=== PATIENT | female | born 1975 | race Caucasian/White ===

== ENCOUNTER 2019-06-06 05:13 | Inpatient (IN) | payer MEDICAID ==
[2019-06-03 11:22] LABS: BASOPHILS % (AUTO) 0.5 % (0-1); EOSINOPHILS % (AUTO) 0.3 % (0-6); LYMPHOCYTES # (AUTO) 1.7 X10'3 (1.1-4.8); LYMPHOCYTES % (AUTO) 28.9 % (21-51); MEAN CORPUSCULAR HEMOGLOBIN 30.5 PG (27.0-31.0); MEAN CORPUSCULAR HGB CONC 34.1 g/dL (33.0-36.5); MEAN CORPUSCULAR VOLUME 89.4 FL (78-98); MONOCYTES # (AUTO) 0.4 X10'3 (0-0.9); MONOCYTES % (AUTO) 7.6 % (2-12); NEUTROPHILS # (AUTO) 3.7 X10'3 (1.8-7.7); NEUTROPHILS % (AUTO) 62.7 % (42-75); PRE OP HEMATOCRIT 38.9 % (35.0-45.0); PRE OP HEMOGLOBIN 13.3 g/dL (12.0-16.0); PRE OP PLATELET COUNT 264 X10'3 (140-440); RED BLOOD COUNT 4.35 X10'6 (4.20-5.60); RED CELL DISTRIBUTION WIDTH 14.2 % (11.5-14.5)
[2019-06-03 11:28] LABS: CLARITY,URINE SLIGHTLY CLOUDY (Clear); COLOR,URINE YELLOW (Yellow); GLUCOSE, URINE NEGATIVE (Neg); KETONES,URINE NEGATIVE (Neg); LEUKOCYTE ESTERASE ,URINE NEGATIVE (Neg); NITRITES, URINE NEGATIVE (Neg); OCCULT BLOOD,URINE NEGATIVE (Neg); PH,URINE 7.5 (4.8-8.0); PROTEIN,URINE NEGATIVE (Neg); UROBILINOGEN,URINE 0.2 E.U/dL (0.2-1.0)
[2019-06-03 11:29] LABS: UA COLLECTION TYPE CLN CATCH MIDSTREAM
[2019-06-03 11:33] LABS: PRE OP PROTIME 10.3 SECONDS (9.0-12.0)
[2019-06-03 11:35] LABS: ALBUMIN 3.8 G/DL (3.4-5.0); ALBUMIN/GLOBULIN RATIO 1.2 (1.1-1.5); ALKALINE PHOSPHATASE 66 IU/L (46-116); BLOOD UREA NITROGEN 8 MG/DL (7-18); BUN/CREATININE RATIO 10.8 (6.6-38.0); CALCIUM 8.6 MG/DL (8.5-10.1); CHLORIDE 106 MMOL/L (99-107); CREATININE 0.74 MG/DL (0.40-0.90); PRE OP ALT 21 U/L (30-65); PRE OP ANION GAP 5 (8-16); PRE OP AST 15 U/L (10-37); PRE OP BILIRUB, TOTAL 0.4 MG/DL (0.0-1.0); PRE OP GLUCOSE 86 MG/DL (70-104); PRE OP SODIUM 139 MMOL/L (135-145); TOTAL CARBON DIOXIDE 28.1 MMOL/L (24-32); eGFR 86 ML/MIN
[2019-06-03 11:40] LABS: MUCUS STRANDS FEW /LPF (Neg); SQUAMOUS EPITHELIAL CELL,UR FEW /LPF (FEW)
[2019-06-03 11:41] LABS: BACTERIA,URINE NONE SEEN /HPF (Neg); RBC,URINE 0-2 /HPF (0-2); TRANSITIONAL EPI CELLS,URINE FEW /HPF; WBC,URINE 0-4 /HPF (0-4)
[2019-06-06] VITALS (18 sets, daily range): BP systolic 104–128; BP diastolic 49–76
[~2019-06-06] VITALS: Ht 160 cm; Wt 68.0 kg
[~2019-06-06 05:13] MED LIST: BACL10TA PO; IBUP-2417 PO; LEVO100T PO; LORA10TA7 PO; MUPI22OI30 TP
[2019-06-06] MEDS ORDERED: ceFOXitin 2 GM ADDvantage bag 100 ML IV ONE (05:30)
[2019-06-06] MEDS ORDERED: NORMAL SALINE IV SCH (05:30)
[2019-06-06] MEDS ORDERED: GENTAMICIN IV SCH (05:30)
[2019-06-06] MEDS ORDERED: CLINDAMYCIN/D5W 900mg/50ml 50 ML IV ONE (05:30)
[2019-06-06] MEDS ORDERED: tranexamic acid inj. 1,000 MG in normal saline 100 ML IV ONE (05:30)
[2019-06-06] MEDS ORDERED: famotidine 10mg tablet PO ONE (05:30)
[2019-06-06] MEDS ORDERED: LIDOcaine 1% (10mg/ml) 2ml vial ONE (05:53)
[2019-06-06] MEDS: ringers solution, lacted 1,000 ML IV SCH ×2 (06:04→22:34)
[2019-06-06] MEDS ORDERED: sevoflurane 250ml liquid IH ONE (07:15)
[2019-06-06] MEDS ORDERED: glycopyrrolate 0.2mg/ml inj ONE (07:15)
[2019-06-06] MEDS ORDERED: rocuronium 10mg/ml inj IV ONE (07:15)
[2019-06-06] MEDS ORDERED: neostigmine methylsulfate 1 MG/ML 10ml vial ONE (07:15)
[2019-06-06] MEDS ORDERED: scopolamine 1.5mg patch.TD72 TD ONE (07:21)
[2019-06-06] MEDS ORDERED: midazolam 2 mg/2 ml injection ONE (07:24)
[2019-06-06] MEDS ORDERED: fentaNYL /PF 50mcg/ml 5ml ampule ONE (07:24)
[2019-06-06] MEDS ORDERED: LIDOcaine 2% (20mg/ml) 5ml vial ONE (07:24)
[2019-06-06] MEDS ORDERED: propofol inj 20 ML IV ONE (07:24)
[2019-06-06] MEDS ORDERED: dexamethasone sod phosphate 4mg/ml inj. ONE (07:37)
[2019-06-06] MEDS ORDERED: ondansetron/PF 4mg/2ml inj ONE (07:37)
[2019-06-06] MEDS ORDERED: bisacodyl 10mg suppository rectal RC PRN (09:15)
[2019-06-06] MEDS ORDERED: naloxone 0.4 mg/ml inj IV PRN ×2 (09:15→09:50)
[2019-06-06] MEDS ORDERED: LORazepam 2 mg/ml vial IV PRN (09:15)
[2019-06-06] MEDS ORDERED: HYDROcodone/acetaminophen 5mg/325mg tablet PO PRN (09:15)
[2019-06-06] MEDS ORDERED: temazepam 15mg capsule PO PRN (09:15)
[2019-06-06] MEDS ORDERED: mag hydrox/Alum hydrox/simeth 30ml oral suspension PO PRN (09:15)
[2019-06-06] MEDS ORDERED: ondansetron/PF 4mg/2ml inj IV PRN ×2 (09:15→09:35)
[2019-06-06] MEDS ORDERED: diphenhydrAMINE 50 mg/ml inj IV PRN (09:15)
[2019-06-06] MEDS ORDERED: HYDROcodone/acetaminophen 10/325mg tab PO PRN ×2 (09:15)
[2019-06-06] MEDS ORDERED: CADD PCA waste documentation MC PRN ×2 (09:15→09:50)
[2019-06-06] MEDS ORDERED: ketorolac trometh. 30mg/ml inj. ONE (09:17)
--- NOTE | 2019-06-06 09:30 | NUR ---
Received from OR via SURGICAL BED , accompanied by Anesthesiologist ART and report given by Anesthesiolgist. PATIENT WITH ONE LATERAL LOW ABDOMINAL DRESSING IN PLACE THAT IS CDI. 20G PIV IN LEFT UE RUNNING LR AT 100. DENIES PAIN. BEAL CATHETER PRESENT WITH CLEAR YELLOW URINE. Addendum: 06/06/19 at 0944 by Stevie Jean RN, RN Amended: Links added.
[2019-06-06] MEDS ORDERED: ringers solution, lacted 1,000 ML IV SCH (09:34)
[2019-06-06] MEDS ORDERED: meperidine/PF 25mg/ml syringe IV PRN ×2 (09:35)
[2019-06-06] MEDS ORDERED: proCHLORperazine 10 MG/2 ml inj IV PRN (09:35)
[2019-06-06] MEDS ORDERED: morphine 4 MG/ML inj SYRINge IV PRN ×2 (09:35)
[2019-06-06] MEDS ORDERED: morphine/NS 5 mg/ml CADD 50 ML IV SCH (09:47)
[2019-06-06] MEDS: meperidine/PF 25mg/ml syringe IV PRN ×2 (09:57→10:14)
[2019-06-06] MEDS ORDERED: ibuprofen 200mg tablet PO PRN (10:40)
[2019-06-06] MEDS ORDERED: baclofen 10mg tablet PO PRN (10:40)
--- NOTE | 2019-06-06 10:40 | NUR ---
ALL CRITERIA FOR TRANSFER TO THE FLOOR HAS BEEN ACHIEVED. VSS. BED LOW, CALL LIGHT AND VS. SET IN PLACE. RN PRESENT TO ACCEPT CARE. PATIENT RESTING COMFORTABLY IN BED. BELONGINGS SENT WITH PATIENT. DRESSINGS CDI. SALVATORE CORTÉS PRESENT TO ACCEPT CARE OF PATIENT. SPOUSE AT BEDSIDE. ONE BAG OF BELONGINGS SENT WITH PATIENT. ABDOMINAL DRESSING IS CDI. Addendum: 06/06/19 at 1050 by Stevie Jean RN, RN Amended: Links added.
--- NOTE | 2019-06-06 10:45 | NUR ---
Received report from SALVATORE Hubbard in recovery and patient arrived to room 358A, vital signs stable, morphine CADD set up with SALVATORE Hubbard. at bedside. Patient drowsy, arousable to name, no other signs of distress. Oxygen saturation at 100% on 2 L O2. Island dressing on lower abdomen and CDI.
[2019-06-06] MEDS: morphine/NS 5 mg/ml CADD 50 ML IV SCH ×6 (13:00→23:00)
[2019-06-06] MEDS: simethicone 80mg chew tab PO SCH ×2 (13:01→19:13)
[2019-06-06] MEDS: ibuprofen 200mg tablet PO SCH ×2 (13:02→19:13)
--- NOTE | 2019-06-06 18:30 | NUR ---
Patient in room [facility] 358. I have received report from SALVATORE Post and had the opportunity to ask questions and assume patient care.
[2019-06-06] MEDS: mupirocin 2% ointment 22GM TP SCH (19:13)
[2019-06-06] MEDS: docusate sod 100mg capsule PO SCH (19:13)
[2019-06-07 00:46] VITALS: BP 99/42
[2019-06-07 00:55] VITALS: BP 120/90
[2019-06-07] MEDS: morphine/NS 5 mg/ml CADD 50 ML IV SCH ×6 (01:00→11:00)
[2019-06-07] MEDS: ibuprofen 200mg tablet PO SCH ×4 (02:00→19:21)
[2019-06-07 05:21] LABS: BASOPHILS % (AUTO) 0.2 % (0-1); EOSINOPHILS % (AUTO) 0.2 % (0-6); HEMATOCRIT 32.3 % (35.0-45.0); HEMOGLOBIN 10.7 g/dl (12.0-16.0); LYMPHOCYTES # (AUTO) 1.6 X10'3 (1.1-4.8); LYMPHOCYTES % (AUTO) 14.4 % (21-51); MEAN CORPUSCULAR HGB CONC 33.1 g/dL (33.0-36.5); MEAN CORPUSCULAR VOLUME 90.5 FL (78-98); MEAN PLATELET VOLUME 8.3 FL (7.4-10.4); MONOCYTES % (AUTO) 9.2 % (2-12); NEUTROPHILS # (AUTO) 8.5 X10'3 (1.8-7.7); PLATELET COUNT 219 X10'3 (140-440); RED BLOOD COUNT 3.56 X10'6 (4.20-5.60); RED CELL DISTRIBUTION WIDTH 14.2 % (11.5-14.5); WHITE BLOOD COUNT 11.2 X10'3 (4.5-11.0)
[2019-06-07 05:37] LABS: ALANINE AMINOTRANSFERASE 20 U/L (12-78); ALBUMIN 2.9 G/DL (3.4-5.0); ALKALINE PHOSPHATASE 51 IU/L (46-116); ANION GAP 6 (8-16); ASPARTATE AMINO TRANSFERASE 26 U/L (10-37); BILIRUBIN,TOTAL 0.4 MG/DL (0.1-1.0); BLOOD UREA NITROGEN 6 MG/DL (7-18); BUN/CREATININE RATIO 8.2 (6.6-38.0); CALCIUM 7.9 MG/DL (8.5-10.1); CHLORIDE 106 MMOL/L (99-107); CREATININE 0.73 MG/DL (0.40-0.90); GLUCOSE 107 MG/DL (70-104); POTASSIUM 3.7 MMOL/L (3.5-5.1); SODIUM 140 MMOL/L (135-145); TOTAL CARBON DIOXIDE 28.2 MMOL/L (24-32); TOTAL PROTEIN 5.8 G/DL (6.4-8.2); eGFR 87 ML/MIN
--- NOTE | 2019-06-07 06:21 | NUR ---
Problems reprioritized. Patient report given, questions answered & plan of care reviewed with SALVATORE Canela.
--- NOTE | 2019-06-07 06:25 | NUR ---
Patient in room [facility] 358. I have received report from BELLE CHASE and had the opportunity to ask questions and assume patient care.
[2019-06-07 07:00] VITALS: BP 107/62
[2019-06-07] MEDS: levoTHYROXINE 100mcg tablet PO SCH (07:31)
[2019-06-07] MEDS: loratadine 10mg tablet PO SCH (07:31)
[2019-06-07] MEDS: docusate sod 100mg capsule PO SCH ×2 (07:31→19:21)
[2019-06-07] MEDS: simethicone 80mg chew tab PO SCH ×3 (07:31→19:21)
[2019-06-07] MEDS: mupirocin 2% ointment 22GM TP SCH ×2 (07:32→19:21)
--- NOTE | 2019-06-07 07:37 | NUR ---
ADMIN MEDS, CHECKED ABD, CURRENTLY NO FLATULUS, PT STATES SHE AMBULATED LAST NIGHT AND AT 0500. WILL AMBULATE AGAIN AFTER BREAKFAST.
[2019-06-07 11:00] VITALS: BP 112/56
--- NOTE | 2019-06-07 11:46 | NUR ---
PT IS AMBULATING, VOIDING WELL AFTER DC'ING THE BEAL CATHETER, AND MINIMAL PAIN
[2019-06-07] MEDS: metoclopramide 5 mg/ml inj IV PRN (17:40)
[2019-06-07 18:00] VITALS: BP 100/57
--- NOTE | 2019-06-07 18:12 | NUR ---
Problems reprioritized. Patient report given, questions answered & plan of care reviewed with BELLE CHASE.
--- NOTE | 2019-06-07 18:15 | NUR ---
Patient in room [facility] 358. I have received report from SALVATORE Canela and had the opportunity to ask questions and assume patient care.
[2019-06-07] MEDS: normal saline 1000ml 1,000 ML IV PRN ×2 (18:22→18:24)
[2019-06-07] MEDS: potassium 20mEq/D5LR 1,000 ML IV SCH (19:20)
[2019-06-08] VITALS: BP 107/61
[2019-06-08] MEDS: potassium 20mEq/D5LR 1,000 ML IV SCH (02:15)
[2019-06-08] MEDS: ibuprofen 200mg tablet PO SCH ×2 (02:15→07:34)
--- NOTE | 2019-06-08 06:14 | NUR ---
Patient in room [facility] 358. I have received report from BELLE CHASE and had the opportunity to ask questions and assume patient care.
--- NOTE | 2019-06-08 06:26 | NUR ---
Problems reprioritized. Patient report given, questions answered & plan of care reviewed with Lu Canela.
[2019-06-08 07:00] VITALS: BP 108/66
[2019-06-08] MEDS ORDERED: POTASSIUM CL IV SCH (07:10)
[2019-06-08] MEDS ORDERED: LACTED IV SCH (07:10)
[2019-06-08] MEDS ORDERED: RINGERS IV SCH (07:10)
[2019-06-08] MEDS: simethicone 80mg chew tab PO SCH (07:34)
[2019-06-08] MEDS: levoTHYROXINE 100mcg tablet PO SCH (07:34)
[2019-06-08] MEDS: metoclopramide 5 mg/ml inj IV PRN (07:34)
[2019-06-08] MEDS: loratadine 10mg tablet PO SCH (07:34)
[2019-06-08] MEDS: docusate sod 100mg capsule PO SCH (07:34)
[2019-06-08] MEDS: mupirocin 2% ointment 22GM TP SCH (10:11)
== END 2019-06-08 13:51 | disposition home or self-care (01) | DRG 519 ==
LOC: PAS IN 05:13 → EDSTATUS 07:30 → SUR 3N 09:20
PROVIDERS: ADMIT Obstetrics & Gynecology; ATTEND Obstetrics & Gynecology
PROC: 0UT20ZZ Resection of Bilateral Ovaries, Open Approach (ICD-10-PCS; 2019-06-06)
PROC: 0UT70ZZ Resection of Bilateral Fallopian Tubes, Open Approach (ICD-10-PCS; 2019-06-06)
PROC: 0UT90ZZ Resection of Uterus, Open Approach (ICD-10-PCS; principal; 2019-06-06 07:15)
DX: D25.9 Leiomyoma of uterus, unspecified (principal); E03.9 Hypothyroidism, unspecified; M19.90 Unspecified osteoarthritis, unspecified site; T40.605A Adverse effect of unspecified narcotics, initial encounter; Z98.51 Tubal ligation status; Y92.009 Unspecified place in unspecified non-institutional (private) residence as the place of occurrence of the external cause; Z88.8 Allergy status to other drugs, medicaments and biological substances; Z88.5 Allergy status to narcotic agent
CPT/HCPCS: 36415; 80053; 81001; 82948; 85025; 85610; 85730; 86885; 86900; 86901; 86920; A4618; A7000; C1758; G0378; J1100; J1580; J1885; J2001; J2175; J2250; J2270; J2405; J2704; J2710; J2765; J3010; J3480; J3490; J7030; J7120